=== PATIENT | female | born 1945 | race Caucasian/White ===

== ENCOUNTER → 2016-11-09 | Outpatient (REF) ==
[~2016-11-09] MED LIST: ASPIRIN 81M81 MG/TA2 PO; CALCIUM 600 PLU1 TAB PO; VIT D; ZOCOR5 MG PO
== END ==
LOC: ZLAB.WCH 10:57
DX: Z01.89 Encounter for other specified special examinations (principal)

== ENCOUNTER → 2018-12-05 | Outpatient (REF) | LOC: ZLAB.WCH 16:03 | DX: Z01.89 Encounter for other specified special examinations (principal) ==

== ENCOUNTER → 2020-03-18 | Outpatient (CLI) | payer MEDICARE, OTHER | LOC: MC.RAD 08:58 | DX: N63.21 Unspecified lump in the left breast, upper outer quadrant (principal) ==